=== PATIENT | female | born 1975 | race Caucasian/White ===

== ENCOUNTER 2016-05-25 17:43 | Emergency (ER) | payer OTHER ==
[2016-05-25 18:01] VITALS: BP 143/75
--- NOTE | 2016-06-04 09:51 | UC ---
Erika Mora Erika, scribed for Flori Boothe DO on 05/25/16 at 1900 . Cardiac HPI - HPI Summary HPI Summary: Patient is a 40-year-old female presenting to [facility] with a CC of chest tightness starting yesterday. Pain does not radiate, and she rates chest tightness a 5/ 10. Patient also reports palpitations, describing it as a skipped or added beat. She reports she had some similar symptoms in 1998 when she had an anxiety attack, but denies extra stressors above baseline. Patient does note a sore throat for the past 4 weeks, but has been seen for this. Patient denies any fever, chills, dizziness, diaphoresis, headache, nausea, vomiting, abdominal pain, urinary symptoms, myalgias, arthralgias, or left neck, jaw, and arm pain. Hx HTN only in . Denies Hx diabetes. FHx diabetes. Denies FHx HTN, CAD , sudden before the age of 50. - History of Current Complaint Chief Complaint: UCChestPain Stated Complaint: CHEST TIGHTNESS,PALPITATIONS Time Seen by Provider: 05/25/16 18:43 Hx Obtained From: Patient Onset/Duration: Gradual Onset, Lasting Days - 1 day, Still Present Timing: Constant Initial Severity: Mild Current Severity: Mild Pain Intensity: 5 Character: Skipped Beats Aggravating: Nothing Alleviating: Nothing Associated Signs & Symptoms: Positive: Palpitations. Negative: Headaches, Dizziness, SOB, Fever, Diaphoresis, Nausea/Vomiting, Cough, Abdominal Pain - Risk Factors Pulmonary Embolism Risk Factors: Negative Cardiac Risk Factors: Negative Atrial Fibrillation: Negative AMI/ACS Risk Factors: Myocardial Infarction - Allergy/Home Medications Allergies/Adverse Reactions: Allergies Allergy/AdvReac Type Severity Reaction Status Date / Time No Known Allergies Allergy Verified 05/25/16 18:01 Home Medications: Home Medications Ibuprofen TAB* [Advil TAB*] 400 mg PO PRN 05/25/16 [History] PMH/Surg Hx/FS Hx/Imm Hx Endocrine History Of: Denies: Diabetes, Thyroid Disease Cardiovascular History Of: Reports: Cardiac Disorders - HX ASD/VSD, HEART MURMUR Denies: Hypertension, Pacemaker/ICD Respiratory History Of: Denies: COPD, Asthma GI/ History Of: Denies: Ulcer, Renal Disease Neurological History Of: Reports: Migraine Psychological History Of: Reports: Anxiety - MEDS - Surgical History Surgical History: Yes Surgery Procedure, Year, and Place: 1974-REPAIR OF HOLE IN HEART ASD AND VSD, [place]. 1982 OPEN HEART SURGERY- REATTACH THE PATCH IN HEART - PT DOES NOT HAVE A CARD, SO ONLY CAN BE SCANNED ON 1.5T, [place]. 11/2013 HEMORRHOIDECTOMY, [facility] - Family History Known Family History: Positive: Diabetes Negative: Cardiac Disease - Social History Occupation: Employed Full-time Lives: With Family Alcohol Use: Occasionally Alcohol Amount: 1-2 GLASSES OF WINE Substance Use Type: None Smoking Status (MU): Former Smoker Type: Cigarettes Amount Used/How Often: 1/2 PPD Length of Time of Smoking/Using Tobacco: 10 YEARS Have You Smoked in the Last Year: No When Did the Patient Quit Smoking/Using Tobacco: 2006 Review of Systems Constitutional: Negative Skin: Negative Eyes: Negative ENT: Sore Throat Respiratory: Negative Cardiovascular: Palpitations, Other - chest tightness Gastrointestinal: Negative Genitourinary: Negative Motor: Negative Neurovascular: Negative Musculoskeletal: Negative Neurological: Negative Psychological: Negative All Other Systems Reviewed And Are Negative: Yes Physical Exam Triage Information Reviewed: Yes Appearance: Well-Appearing, No Pain Distress, Well-Nourished Vital Signs: Initial Vital Signs Temp 98.2 F 05/25/16 17:56 Pulse 74 05/25/16 17:56 Resp 16 05/25/16 17:56 BP 143/75 05/25/16 17:56 Pulse Ox 100 05/25/16 17:56 Vital Signs Reviewed: Yes Eyes: Positive: Conjunctiva Clear. Negative: Discharge ENT: Positive: Hearing grossly normal, Pharynx normal, TMs normal. Negative: Nasal congestion, Nasal drainage, Tonsillar swelling, Tonsillar exudate, Muffled /hoarse voice Neck: Positive: Supple, Nontender Respiratory: Positive: Lungs clear, Normal breath sounds, No respiratory distress, No accessory muscle use. Negative: Chest non-tender - costosternal tender junction ribs 4-7 bl Cardiovascular: Positive: RRR, Other: - murmur best heard over the left sternal border, per pt is not new Musculoskeletal Exam: Normal Neurological: Positive: Alert, Muscle Tone Normal Psychological Exam: Normal Psychological: Positive: Age Appropriate Behavior Skin Exam: Other - warm, dry, normal color Diagnostics - Laboratory Diagnostic Studies Completed/Ordered: EKG at 17:53 - NSR at 73 bpm. RBBB unchanged since prior on 03/21/2015 - Differential Diagnoses - Chest Pain Differential Diagnosis/HQI/PQRI: Chest Wall, GI Disease, Lower Respiratory Infection - Clinical Impression Provider Diagnoses: costochondritis Discharge - Discharge Plan Condition: Stable Disposition: HOME Patient Education Materials: Costochondritis (ED) Referrals: Lois Fan MD [Primary Care Provider] - If Needed Additional Instructions: FOLLOW-UP CARE: You should establish with a private physician for follow-up care FOLLOW UP IN 1 WEEK. If you are unable to get a timely appointment, or if you are worsening, call us or return for re-evaluation. An additional resource available to assist in finding the appropriate physician for your health care needs is the [facility]ician Referral Center. You may contact them by calling [phone]. The documentation as recorded by the Erika deleon Erika accurately reflects the service I personally performed and the decisions made by me, Flori Boothe DO.
== END 2016-05-25 19:17 | disposition home or self-care (01) ==
LOC: UCEAST 17:43
DX: M94.0 Chondrocostal junction syndrome [Tietze] (principal); R00.2 Palpitations; Q21.1 Atrial septal defect; Q21.0 Ventricular septal defect; I45.10 Unspecified right bundle-branch block; R01.1 Cardiac murmur, unspecified; G43.909 Migraine, unspecified, not intractable, without status migrainosus; F41.9 Anxiety disorder, unspecified; Z87.891 Personal history of nicotine dependence
CPT/HCPCS: 93005; 99211; G0463

== ENCOUNTER 2017-09-24 21:08 | Emergency (ER) | payer OTHER ==
[2017-09-24 21:26] VITALS: BP 131/79
--- NOTE | 2017-09-24 21:37 | UC ---
Lower Extremity/Ankle HPI - HPI Summary HPI Summary: This is scribe Florentino Ardon documenting for attending Mio Bourgeois MD. This patient is a 42 year old F presenting to [facility] with a chief complaint of left fourth toe pain since this morning. Pt reports she ran into a wall. The patient rates the pain 6/10 in severity. Patient reports erythema and ecchymosis of her toe. Patient denies laceration. I, Dr. Bourgeois, personally performed the services described in this documentation as scribed in my presence and it is both accurate and complete. - History of Current Complaint Chief Complaint: UCLowerExtremity Stated Complaint: TOE INJURY Time Seen by Provider: 09/24/17 21:30 Hx Obtained From: Patient Hx Last Menstrual Period: 09/02 Onset/Duration: Sudden Onset Severity Initially: Moderate Severity Currently: Moderate Pain Intensity: 6 Pain Scale Used: 0-10 Numeric Able to Bear Weight: Yes - Allergies/Home Medications Allergies/Adverse Reactions: Allergies Allergy/AdvReac Type Severity Reaction Status Date / Time No Known Allergies Allergy Verified 09/24/17 21:27 PMH/Surg Hx/FS Hx/Imm Hx Cardiovascular History: Cardiac Disease GI/ History: Other - hemorroid Other GI/ History: . - Surgical History Surgical History: Yes Surgery Procedure, Year, and Place: 1974-REPAIR OF HOLE IN HEART ASD AND VSD, [place]. 1982 OPEN HEART SURGERY- REATTACH THE PATCH IN HEART - PT DOES NOT HAVE A CARD, SO ONLY CAN BE SCANNED ON 1.5T, [place]. 11/2013 H[place]OM[place], [facility] [place] - Family History Known Family History: Positive: Cardiac Disease - Social History Alcohol Use: Occasionally Alcohol Amount: 1-2 GLASSES OF WINE Substance Use Type: None Smoking Status (MU): Former Smoker Type: Cigarettes Amount Used/How Often: 1/2 PPD Length of Time of Smoking/Using Tobacco: 10 YEARS Have You Smoked in the Last Year: No When Did the Patient Quit Smoking/Using Tobacco: 2006 Review of Systems Skin: Bruising - left foot toe Musculoskeletal: Edema - left foot, 4th toe Psychological: Negative All Other Systems Reviewed And Are Negative: Yes Physical Exam - Summary Physical Exam Summary: General: well-appearing, no pain distress Skin: warm, color reflects adequate perfusion, dry Head: normal Eyes: EOMI, JARAD ENT: normal Neck: supple, nontender Respiratory: CTA, breath sounds present Cardiovascular: RRR Abdomen: soft, nontender Bowel: present Musculoskeletal: strength/ROM intact. Left 4th toe is ecchymotic and TTP. Neurological: sensory/motor intact, A&O x3 Psychological: affect/mood appropriate Triage Information Reviewed: Yes Vital Signs: Initial Vital Signs Temp 98.2 F 09/24/17 21:22 Pulse 71 09/24/17 21:22 Resp 18 09/24/17 21:22 BP 131/79 09/24/17 21:22 Pulse Ox 99 09/24/17 21:22 Vital Signs Reviewed: Yes Diagnostics - Radiology Toe X Ray Radiology Interpretation Completed By: ED Physician - possible non displaced distal phalynx fracture, pending official radiologist report Lower Extremity Course/Dx - Course Course Of Treatment: POSSIBLE NON DISPLACED LEFT 4TH DISTAL PHALANYX FXR ON X- RAY. RADIOLOGIST READING PENDING. THIS WAS DISCUSSED WITH THE PATIENT. 3RD/4TH TOES VALARIE TAPED. F/U PMD; RECHECK SOONER IF WORSE. - Differential Dx/Diagnosis Provider Diagnoses: LEFT 4TH TOE INJURY Discharge - Sign-Out/Discharge Documenting (check all that apply): Patient Departure - Discharge Plan Condition: Stable Disposition: HOME Patient Education Materials: Toe Fracture (ED) Referrals: Terrie Berrios MD [Primary Care Provider] - Additional Instructions: FOLLOW UP WITH YOUR DOCTOR. GET RECHECKED FOR ANY WORSENING OF YOUR CONDITION OR QUESTIONS OR CONCERNS. - Billing Disposition and Condition Condition: STABLE Disposition: Home
--- NOTE | 2017-09-25 07:42 | RAD ---
INDICATION: Left fourth digit pain after "stubbing" injury TECHNIQUE: 3 views of the left fourth toe were obtained. 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 The visualized bones are normal alignment. Joint spaces appear maintained. No fracture is seen. IMPRESSION: No radiographically apparent acute fracture. IF THE PATIENT'S SYMPTOMS PERSIST RECOMMEND FOLLOW-UP IMAGING. R2
== END 2017-09-24 22:05 | disposition home or self-care (01) ==
LOC: UCEAST 21:08
DX: S99.922A Unspecified injury of left foot, initial encounter (principal); W22.01XA Walked into wall, initial encounter; Y93.9 Activity, unspecified; Y92.9 Unspecified place or not applicable; Z87.891 Personal history of nicotine dependence
CPT/HCPCS: 99211; G0463

== ENCOUNTER 2017-10-02 17:33 | Emergency (ER) | payer OTHER ==
[2017-10-02 17:44] VITALS: BP 127/70
--- NOTE | 2017-10-02 18:06 | UC ---
Lower Extremity/Ankle HPI - HPI Summary HPI Summary: The patient is a 42 y/o F presenting to [facility] c/o swollen and erythematous left fourth toe starting 09/23/17. She had presented to [facility] on 09/24/17, but there was no fracture of the toe found by XR. She is still experiencing pain, rated 71/0 in severity. The bruising that was present at onset has now been relieved. The pain is worsened with ambulation, and she states that she has to curl her toes underneath to prevent pressure. There is not any pain on the bottom of her foot , but there is some pain on the dorsal aspect near the end of the toe. She has been taking Ibuprofen as well as applying ice and millie tape to the toe, and she has been resting it with elevation as much as possible, although she reports she does a lot of walking. - History of Current Complaint Chief Complaint: UCLowerExtremity Stated Complaint: TOE PAIN,SWELLING Time Seen by Provider: 10/02/17 17:50 Hx Obtained From: Patient Hx Last Menstrual Period: 10/01/17 Onset/Duration: Sudden Onset, Lasting Days - week and a half, Still Present Severity Initially: Moderate Severity Currently: Moderate Pain Intensity: 7 Pain Scale Used: 0-10 Numeric Aggravating Factor(s): Standing, Ambulation Alleviating Factor(s): Rest, Elevation, Ice, OTC Meds - Ibuprofen Able to Bear Weight: Yes - pressure aggravates the pain Feet (Multiple View): 1 - pain in left fourth toe - Allergies/Home Medications Allergies/Adverse Reactions: Allergies Allergy/AdvReac Type Severity Reaction Status Date / Time No Known Allergies Allergy Verified 10/02/17 17:44 PMH/Surg Hx/FS Hx/Imm Hx Other Endocrine History: NEGATIVE: diabetes Other Cardiovascular History: ASD/VSD, heart murmur - Surgical History Surgical History: Yes Surgery Procedure, Year, and Place: 1974-REPAIR OF HOLE IN HEART ASD AND VSD, [place]. 1982 OPEN HEART SURGERY- REATTACH THE PATCH IN HEART - PT DOES NOT HAVE A CARD, SO ONLY CAN BE SCANNED ON 1.5T, [place]. 11/2013 HEMORRHOIDECTOMY, [facility] - Family History Known Family History: Positive: Cardiac Disease Negative: Diabetes - Social History Alcohol Use: Occasionally Alcohol Amount: 1-2 GLASSES OF WINE Substance Use Type: None Smoking Status (MU): Former Smoker Type: Cigarettes Amount Used/How Often: 1/2 PPD Length of Time of Smoking/Using Tobacco: 10 YEARS Have You Smoked in the Last Year: No When Did the Patient Quit Smoking/Using Tobacco: 2006 Review of Systems Skin: Other - POSITIVE: swelling and erythema in left fourth toe; NEGATIVE: bruising Musculoskeletal: Other: - POSITIVE: pain in left fourth toe worsened with ambulation, pain in dorsal aspect of left foot near fourth toe; NEGATIVE: pain in bottom of foot All Other Systems Reviewed And Are Negative: Yes Physical Exam - Summary Physical Exam Summary: General: well-appearing, no pain distress Skin: warm, color reflects adequate perfusion, dry Head: normal Eyes: EOMI, JARAD ENT: normal Neck: supple, nontender Respiratory: CTA, breath sounds present Cardiovascular: RRR Abdomen: soft, nontender Bowel: present Musculoskeletal: normal, strength/ROM intact, Left fourth toe swollen, tender to palpation, no skin breaks, no pus, no no discharge Neurological: sensory/motor intact, A&O x3 Psychological: affect/mood appropriate Triage Information Reviewed: Yes Vital Signs: Initial Vital Signs Temp 97.8 F 10/02/17 17:39 Pulse 77 10/02/17 17:39 Resp 18 10/02/17 17:39 BP 127/70 10/02/17 17:39 Pulse Ox 98 10/02/17 17:39 Vital Signs Reviewed: Yes Lower Extremity Course/Dx - Course Course Of Treatment: Medications reviewed. Allergies noted. NO SIGN OF INFECTION. PRIOR W-RAY DOES NOT SHOW FRACTURE. DISCUSSED RE X-RAYING; THE PATIENT DECLINED AT THIS TIME A TOE SPRAIN OR FRACTURE IS TREATED THE SAME WAY. NO FOOT PAIN. GIVEN POST OP SHOE IN CLINIC. F/U ORTHOPEDICS IF NOT IMPROVED. - Differential Dx/Diagnosis Provider Diagnoses: LEFT 4TH TOE PAIN Discharge - Sign-Out/Discharge Documenting (check all that apply): Patient Departure - Patient will be discharged home. - Discharge Plan Condition: Stable Disposition: HOME Patient Education Materials: Toe Fracture (ED) Referrals: Terrie Berrios MD [Primary Care Provider] - Mercedez Sparks MD [Medical Doctor] - Additional Instructions: FOLLOW UP WITH, DR SPARKS, ORTHOPEDICS IF NOT COMPLETELY IMPROVED. GET RECHECKED FOR ANY WORSENING OF YOUR CONDITION OR QUESTIONS OR CONCERNS. - Billing Disposition and Condition Condition: STABLE Disposition: Home Attestation Statement Scribe Attestation: This is scribe Wendi Pelaez documenting for attending Dr. Mio Bourgeois MD. User Type: Provider with Scribe Provider Attestation: The documentation recorded by the scribe accurately reflects the service I personally performed and the decisions made by me.
== END 2017-10-02 18:02 | disposition home or self-care (01) ==
LOC: UCEAST 17:33
DX: M79.675 Pain in left toe(s) (principal); M79.89 Other specified soft tissue disorders; Z87.891 Personal history of nicotine dependence
CPT/HCPCS: 99202; G0463

== ENCOUNTER 2018-09-02 09:53 | Emergency (ER) | payer OTHER ==
[2018-09-02 11:19] VITALS: BP 115/71
--- NOTE | 2018-09-02 11:42 | UC ---
Throat Pain/Nasal Chau HPI - HPI Summary HPI Summary: 43 yo female presents with sore throat for the last 2-3 days. She is concerned about strep. She has been eating, drinking, and tolerating po without difficulty. Has not been taking anything OTC for her discomfort. Denies fever, chills, sinus symptoms, cough, rash, abdominal pain, n/v. - History of Current Complaint Chief Complaint: UCGeneralIllness Stated Complaint: SORE THROAT Time Seen by Provider: 09/02/18 11:42 Hx Obtained From: Patient Hx Last Menstrual Period: 08/15/18 Onset/Duration: Gradual Onset Severity: Mild Pain Intensity: 4 Pain Scale Used: 0-10 Numeric - Allergies/Home Medications Allergies/Adverse Reactions: Allergies Allergy/AdvReac Type Severity Reaction Status Date / Time No Known Allergies Allergy Verified 09/02/18 11:14 PMH/Surg Hx/FS Hx/Imm Hx Psychological History: Anxiety, Depression - Surgical History Surgical History: Yes Surgery Procedure, Year, and Place: 1974-REPAIR OF HOLE IN HEART ASD AND VSD, [place]. 1982 OPEN HEART SURGERY- REATTACH THE PATCH IN HEART - PT DOES NOT HAVE A CARD, SO ONLY CAN BE SCANNED ON 1.5T, [place]. 11/2013 HEMORRHOIDECTOMY, [facility] - Family History Known Family History: Positive: Cardiac Disease Negative: Diabetes - Social History Lives: With Family Alcohol Use: Occasionally Alcohol Amount: 1-2 GLASSES OF WINE Substance Use Type: None Smoking Status (MU): Former Smoker Type: Cigarettes Amount Used/How Often: 1/2 PPD Length of Time of Smoking/Using Tobacco: 10 YEARS Have You Smoked in the Last Year: No When Did the Patient Quit Smoking/Using Tobacco: 2006 Review of Systems All Other Systems Reviewed And Are Negative: Yes Constitutional: Positive: Negative Skin: Positive: Negative Eyes: Positive: Negative ENT: Positive: Sore Throat Respiratory: Positive: Negative Cardiovascular: Positive: Negative Gastrointestinal: Positive: Negative Neurovascular: Positive: Negative Neurological: Positive: Negative Psychological: Positive: Negative Physical Exam - Summary Physical Exam Summary: GENERAL: NAD. WDWN. No pain distress. SKIN: No rashes, sores, lesions, or open wounds. HEENT: Head: AT/NC Eyes: EOM intact. Conjunctiva clear without inflammation or discharge. Ears: Hearing grossly normal. TMs intact, no bulging, erythema, or edema. Nose: Nasal mucosa pink and moist. NTTP maxillary and frontal sinus. Throat: Posterior oropharynx without exudates, erythema, or tonsillar enlargement. Uvula midline. NECK: Supple. Nontender. No lymphadenopathy. CHEST: CTAB. No r/r/w. No accessory muscle use. Breathing comfortably and in no distress. CV: RRR. Without m/r/g. Pulses intact. Cap refill <2seconds NEURO: Alert. PSYCH: Age appropriate behavior. Triage Information Reviewed: Yes Vital Signs: Initial Vital Signs Temp 97.6 F 09/02/18 11:15 Pulse 58 09/02/18 11:15 Resp 16 09/02/18 11:15 BP 115/71 09/02/18 11:15 Pulse Ox 98 09/02/18 11:15 Laboratory Tests 09/02/18 11:24 Group A Strep Rapid Negative Vital Signs Reviewed: Yes Throat Pain/Nasal Course/Dx - Course Course Of Treatment: POC strep negative. Suspect viral pharyngitis. Discussed viral vs bacterial with the pt and she prefers to be on antibiotics at this time and have a throat culture sent to the lab. - Differential Dx/Diagnosis Provider Diagnosis: Sore throat Discharge - Sign-Out/Discharge Documenting (check all that apply): Patient Departure All imaging exams completed and their final reports reviewed: No Studies - Discharge Plan Condition: Stable Disposition: HOME Prescriptions: Amoxicillin PO (*) [Amoxicillin 500 MG CAP*] 500 mg PO Q12H #20 cap Patient Education Materials: Pharyngitis (ED) Referrals: Aleah Bender MD [Primary Care Provider] - Additional Instructions: If you develop a fever, shortness of breath, chest pain, new or worsening symptoms - please call your PCP or go to the ED immediately. Your strep test today was negative. We have sent your throat culture to the lab for further testing and will call you with any changes - Billing Disposition and Condition Condition: STABLE Disposition: Home
== END 2018-09-02 12:37 | disposition home or self-care (01) ==
LOC: UCEAST 09:53
DX: J02.9 Acute pharyngitis, unspecified (principal); Z87.891 Personal history of nicotine dependence
CPT/HCPCS: 87070; 87651; 99211; G0463

== ENCOUNTER 2019-09-03 11:09 | Observation (INO) ==
[2019-09-03] MEDS ORDERED: Clindamycin 900 MG/D5W BAG 900 MG/50 ML BAG IVPB ONE (12:00)
[2019-09-03] MEDS ORDERED: HYDROmorphone PCA 1 MG/ML Titrat per Protocol PCA SCH (12:00)
[2019-09-03] MEDS ORDERED: Lidocaine 1% VIAL 10 MG/ML VIAL ONE (12:46)
[2019-09-03] MEDS ORDERED: Iohexol 350 (CONTRAST) 200 ML MDV IV ONE (12:46)
[2019-09-03] MEDS ORDERED: Heparin 2 UNITS/ML 1000 mls 2,000 ML IV ONE (12:47)
[2019-09-03] MEDS ORDERED: nitroGLYCERIN DRIP 25,000 MCG/250 ML BTL ONE (12:47)
[2019-09-03] MEDS ORDERED: Ondansetron 4 mg VIAL 2 MG/ML 2 ml VIAL ONE (12:51)
[2019-09-03] MEDS ORDERED: oxyCODONE SR 10 mg TAB ONE (12:52)
[2019-09-03] MEDS ORDERED: Midazolam 5 mg/5 ml VIAL 1 mg/ml 5 ml VIAL (5 mg) ONE (13:20)
[2019-09-03] MEDS ORDERED: fentaNYL 250 mcg/5 ml 50 MCG/ML 5 ml VIAL (250 MCG) ONE (13:20)
[2019-09-03] MEDS ORDERED: HYDROmorphone 1 MG/1 ML SYRINGE ONE (15:16)
[2019-09-03] MEDS ORDERED: Prochlorperazine 5 mg/ml 2 ml VIAL (10 mg) ONE (15:19)
[2019-09-03] MEDS ORDERED: NS 0.9% 1000 ml BAG 1,000 ML IV SCH (18:15)
[2019-09-03] MEDS: Ondansetron 4 mg VIAL 2 MG/ML 2 ml VIAL IV SCH (21:22)
[2019-09-04] MEDS: Ondansetron 4 mg VIAL 2 MG/ML 2 ml VIAL IV SCH (03:20)
[2019-09-04] MEDS ORDERED: HYDROcodone/ACETAMIN 5/325 mg TAB PO PRN ×2 (08:35→08:44)
[2019-09-04] MEDS ORDERED: CMCS: Ketorolac 10 mg TAB (NF) PO SCH (09:00)
[2019-09-04 11:57] VITALS: BP 117/65
== END 2019-09-04 13:00 | disposition home or self-care (01) ==
LOC: CHICATH 11:09 → INTOOBSV 17:32 → SSU 17:32
PROVIDERS: ADMIT Radiology Diagnostic Radiology; ATTEND Hospitalist